=== PATIENT | male | born 1955 | race Caucasian/White ===

== ENCOUNTER 2024-11-06 09:35 | Emergency (ER) | payer MEDICARE ==
--- NOTE | 2024-11-06 09:59 | ERPHSYRPT ---
- History of Present Illness Time Seen by Provider: 11/06/24 09:48 Source: patient Physician History: This is a 68-year-old white male with a significant past medical history Who presents to the emergency department with a complaint of acute onset of dizziness and diaphoresis and blurry vision. Patient denies any recent trauma or headache patient admits to some nausea no vomiting no tinnitus. Patient denies chest pain pressure heaviness cough hemoptysis shortness of breath fevers or chills. Allergies/Adverse Reactions: sulfacetamide [From Sulfamide] Allergy (Unverified 11/06/24 09:43) Home Medications: ALPRAZolam [Alprazolam] 0.25 mg PO DAILY 11/06/24 [History] Mv-Mn/Iron/Folic Acid/Herb 190 [Vitamin D3 Complete [place]] 1 tab PO DAILY 11/06/24 [History] - Review of Systems Constitutional: No Fever, No Chills Eyes: No Symptoms Ears, Nose, & Throat: No Symptoms Respiratory: No Cough, No Dyspnea Cardiac: No Chest Pain, No Edema, No Syncope Abdominal/Gastrointestinal: No Abdominal Pain, No Nausea, No Vomiting, No Diarrhea Genitourinary Symptoms: No Dysuria Musculoskeletal: No Back Pain, No Neck Pain Skin: Dryness, No Rash Neurological: Other (See HPI), No Focal Weakness, No Sensory Changes Psychological: No Symptoms Endocrine: No Symptoms All Other Systems: Reviewed and Negative - Past Medical History Neurological History: Migraines Cardiac History: Hypertension Respiratory History: No Pertinent History Endocrine Medical History: No Pertinent History Musculoskeletal History: Osteoarthritis Other Medical History: PATIENT HAS MIGRAINES AT TIMES, USED TO HAVE SEVERE MIGRAINES WHEN HE WAS YOUNGER. - Nursing Vital Signs Nursing Vital Signs: Initial Vital Signs Temperature 98.2 F 11/06/24 09:36 Pulse Rate 41 L 11/06/24 09:36 Respiratory Rate 18 11/06/24 09:36 Blood Pressure 190/77 11/06/24 09:36 O2 Sat by Pulse Oximetry 97 11/06/24 09:36 Pain Scale Pain Intensity 0 - [place] Coma Scale Best Eye Response ([place]): (4) open spontaneously Best Verbal Response ([place]): (5) oriented Best Motor Response ([place]): (6) obeys commands [place] Total: 15 - Physical Exam General Appearance: no apparent distress, alert Eye Exam: bilateral eye: PERRL, EOMI Ears, Nose, Throat Exam: normal ENT inspection, moist mucous membranes Neck Exam: normal inspection, non-tender, supple Respiratory: normal breath sounds, lungs clear, airway intact, No respiratory distress Cardiovascular: regular rate/rhythm, No edema Gastrointestinal: soft, No tenderness, No distention Back Exam: normal inspection Extremity Exam: normal inspection, No pedal edema Mental Status: alert, 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 Ordered Tests: Active Orders 24 hr Category Date Time Status EKG-ER Only STAT Care 11/06/24 09:48 Active IV Insertion STAT Care 11/06/24 09:48 Active NPO (ED) STAT Care 11/06/24 09:48 Active POCT Glucose Check ONCE Care 11/06/24 09:48 Active CHEST 1 VIEW (PORTABLE) Stat Exams 11/06/24 09:[address] ANGIOGRAPHY NECK [CT] Stat Exams 11/06/24 09:48 Completed CTA HEAD W AND/OR WO CONTRAST [CT] Stat Exams 11/06/24 09:48 Completed CBC W DIFF Stat Lab 11/06/24 10:00 Completed CMP Stat Lab 11/06/24 10:00 Completed Manual Differential NC Stat Lab 11/06/24 10:00 Completed PROTIME WITH INR Stat Lab 11/06/24 10:00 Completed PTT Stat Lab 11/06/24 10:00 Completed UA W/RFX UR CULTURE Stat Lab 11/06/24 09:49 Ordered Medication Summary Discontinued Medications Generic Name Dose Route Start Last Admin Trade Name Burt PRN Reason Stop Dose Admin Amlodipine Besylate 5 mg 11/06/24 11:42 Amlodipine Besylate 5 Mg Tablet PO 11/06/24 11:43 STAT ONE Lab/Rad Data: Laboratory Result Diagrams 11/06/24 10:00 11/06/24 10:00 Laboratory Results 11/06/24 11/06/24 11/06/24 Range/Units 10:00 10:00 10:00 WBC 11.5 H (4.23-9.07) x10^3/uL RBC 4.86 (4.63-6.08) x10^6/uL Hgb 15.0 (13.7-17.5) g/dL Hct 43.6 (40.1-51.0) % MCV 89.7 (79.0-92.2) fL MCH 30.9 (25.7-32.2) pg MCHC 34.4 (32.3-36.5) g/dL RDW 12.6 (11.6-14.4) % Plt Count 255 (163-337) x10^3/uL MPV 10.1 (9.4-12.4) fL PT 10.0 (9.4-12.5) SECONDS INR 0.91 (0.8-3.0) APTT 22.7 L (25.1-36.5) SECONDS Sodium 138 (135-145) mmol/L Potassium 3.8 (3.5-5.1) mmol/L Chloride 105 (98-107) mmol/L Carbon Dioxide 21 L (22-30) mmol/L Anion Gap 16.2 H (5-15) MEQ/L BUN 20 (9-20) mg/dL Creatinine 1.04 (0.66-1.25) mg/dL Estimated GFR 77.7 ML/MIN Glucose 145 H (74-106) mg/dL Calcium 9.5 (8.4-10.2) mg/dL Total Bilirubin 0.80 (0.2-1.3) mg/dL AST 38 (17-59) U/L ALT 49 (0-50) U/L Alkaline Phosphatase 50 (38-126) U/L Serum Total Protein 7.4 (6.3-8.2) g/dL Albumin 4.5 (3.5-5.0) g/dL - Progress Progress Note: The patient a twelve-lead EKG reveals sinusBradycardia at 54 bpm normal axis no blocks nonspecific ST T wave changes. Patient has CT of the head which revealed a 4.8 x 4.7 sonometer left frontal lobe cystic mass with calcification with mild mass effect. No evidence of CVA patient had a CTA of the head and neck the HepPar was unchanged from the plain CT however they do note that there is moderate stenosis of the proximal left ICA causing 50% stenosis there is soft atheromatous plaque. Patient had a CBC remarkable for white count 11.5 chemistry was remarkable glucose of 145 INR were 0.9. When the patient came in I called a stroke alert however the NIH was 0 and remains 0 I had a stat consult with teleneuro who felt that the patient needed outpatient MRI. I then spoke with the neurosurgeon at [facility] because of the mass in the left frontal lobe. He felt that the patient could be followed up as an outpatient and that he would arrange for their neuro tumor service to see him this upcoming week. In the emergency department the patient was given 5 mg of p.o. amlodipine and I will discharge the patient home amlodipine and he can follow-up with his doctor for further evaluation. Differential diagnosis is vertigo TIA CVA intracranial bleed 11/06/24 11:44 - Departure Clinical Impression: Vertigo, Cystic mass of brain Condition: Stable Critical Care Time: No Referrals: JONN SHOEMAKER NP [Primary Care Provider, [facility]] - Follow up/PCP as directed Instructions: Vertigo (a Type of Dizziness) (DC) Additional Instructions: You need to follow-up with the neuro tumor service at [facility]. They have your phone number they will contact you for an appointment this week Prescriptions: Amlodipine Besylate 5 mg [Norvasc 5 mg] 5 mg PO DAILY #30 tablet
[2024-11-06 10:12] LABS: Hematocrit 43.6 % (40.1-51.0); Hemoglobin 15.0 g/dL (13.7-17.5); Mean Corpuscular Hemoglobin 30.9 pg (25.7-32.2); Mean Corpuscular Hgb Concent. 34.4 g/dL (32.3-36.5); Platelet Count 255 x10^3/uL (163-337); Red Blood Count 4.86 x10^6/uL (4.63-6.08); White Blood Count 11.5 x10^3/uL (4.23-9.07)
[2024-11-06 10:18] VITALS: TEMP 98.2
[2024-11-06 10:28] LABS: Calcium 9.5 mg/dL (8.4-10.2); Carbon Dioxide 21.0 mmol/L (22-30); Creatinine 1 1.04 mg/dL (0.66-1.25); EST GLOMERULAR FILTRATION RATE 77.7 ML/MIN; Glucose 145.0 mg/dL (74-106); Potassium 3.8 mmol/L (3.5-5.1); SGOT/AST 38.0 U/L (17-59); SGPT/ALT 49.0 U/L (0-50); Total Protein 7.4 g/dL (6.3-8.2)
[2024-11-06 10:31] LABS: INR 0.91 (0.8-3.0); PROTIME 10.0 SECONDS (9.4-12.5); PTT 22.7 SECONDS (25.1-36.5)
--- NOTE | 2024-11-06 10:34 | XRAY ---
CLINICAL HISTORY: cva COMPARISON: No previous studies are available for comparison. TECHNIQUE: CT angiography of the head was performed following the intravenous administration of [80cc of isovue 370] of iodinated contrast material. Contiguous axial images were obtained from the base of the skull to the vertex. Coronal and sagittal reformatted images were also reviewed. One of the following 3D techniques was utilized: Maximum Intensity Pixel (MIP), 3D Reconstructed Images, Volume Rendered Images, or Surface Shaded Rendering. One of the following dose reduction techniques was utilized for this exam: automated exposure control, adjustment of the mA and/or kV according to patient size, and use of iterative reconstruction. DLP: 1920.51 mGy-cm, CTDI: 94.9 mGy. FINDINGS: Intracranial Arteries: The intracranial arteries, including the anterior cerebral arteries, middle cerebral arteries, posterior cerebral arteries, basilar artery, and left vertebral artery, are all patent without evidence of significant stenosis, aneurysm, or dissection. There is no evidence of vascular malformation. 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 [place]: The posterior communicative arteries are not well seen. Venous System: The visualized portions of the venous system, including the dural venous sinuses, are patent with no evidence of thrombosis. Brain Parenchyma: The brain parenchyma shows no evidence of acute infarct or hemorrhage. There is a left frontal lobe cystic mass with calcification within, measuring 48 x 47 mm, with mild mass effect. The ventricles and sulci are prominent. Bones: The bony structures of the skull are intact without evidence of fracture or destructive lesions. Soft Tissues: The visualized soft tissues of the head are unremarkable. Additional Findings: No other significant findings are noted. IMPRESSION: 1. No evidence of significant vascular abnormalities, acute infarct, or hemorrhage. 2. There is a left frontal lobe cystic mass with calcification within, measuring 48 x 47 mm with mild mass effect. MRI of the head with contrast is advised for future assessment. [facility] ER was called at [phone] Ext#[phone] at 09:30 AM STOCK HANDLER, 11/06/2024, and, Jadyn ( Nurse ) was informed regarding the presence of Negative stroke findings. Electronically Signed by: Tacos Montalvo MD. (11/06/2024 10:32:58 EDT)
--- NOTE | 2024-11-06 10:52 | PCM.CONS ---
History of Present Illness - Neuro Consultation Date of Consultation Date: 11/06/24 ED Arrival Date & Time: 11/06/24 09:35 * Required General Template * Patient identity was confirmed at the beginning of the consult with the patient/family/staff using two personal identifiers * Clear Other VARGHESE GALLAGHER Male , 68 y.o. (1955) Hospital Clock 10:[address] [facility] - [place] See more Neuro Cohort 2 Neuro Emergency Patient Location and Admission Status * Chief Complaint * LKW 9:00AM today HISTORY OF PRESENT ILLNESS Family members and medical staff present * christopher Jose History of present illness (Include relevant elements: Location, Severity, Timing, Quality, Duration, Context, Modifying Factors, Signs, Symptoms) * Patient is a 68 yr. old RH gentleman who presents w acute onset dizziness/ blurred vision/ diaphoresis onset 9AM today.... no lateralizing weakness/ no paresthesias... NIHSS 0 on entry... + nausea/ diaphoresis/... blood glucose 118 upon entry... CT scan brain - unrevealing for acute cerebral ischemia/ L frontal lobe cystic lesion noted...chronic appearing... case d/w and reviewed w Dr. Jose... patient at baseline level of functioning... resolving symptoms / NIHSS 0... Plan admission and MRI brain w/wo rl... for evaluation of cystic lesion L frontal lobe/ and further tx of dizziness - central vs. peripheral etiology. Review Of Systems Review Of Systems Guide Pertinent Review of Systems * Review of Systems * Constitutional: Denies fevers, chills, weight loss ENT: Denies tinnitus Ophthalmology: Denies diplopia, blurred vision, vision loss Respiratory: Denies SOB, cough Cardiovascular: Denies chest pains, palpitations GI: Denies nausea, vomiting : Denies hematuria Hematology: Denies excessive bleeding Musculoskeletal: Denies back pain, neck pain, joint pain Neurology: Denies headache, altered mentation Mental Health: Denies anxiety Dermatology: Denies rash To my knowledge, this ROS is complete and accurate * Medical History Unable to assess Medical History * Clear Past Medical History Includes Other Medical History Past Procedures Clear Other Past Procedures Allergies Unable to assess Allergies * Clear Other Allergies Medications Unable to assess Anti-Coagulants * Clear Anti-Platelets * Clear Other Medications xanax 0.25mg PRN Social History * Alcohol Use Clear Illicit Drug Use Clear Tobacco Use Clear Other Social History lives at home w Family History Pertinent Family History * Clear Other Family History Vital Signs * Unable to obtain Date & Time 11/06 09:39 Recorded By julianna dietz Afebrile Temperature (F/C) 98.2 / 36.8 Blood Pressure 180/87 mm Hg Heart Rate 42 bpm Respiration Rate 12 bpm O2 Sat 99 % POC Glucose Weight LB/KG 205.5 / 93.2 BMI Means of Collecting Patient Weight Patient weighed at hospital Pain Assessment 0 -None Oxy.Delivery Room Air EKG Rhythm Sinus Rhythm Comments Exam Exam * Neuro exam: Patient awake/ alert/ oriented in 4 spheres. Speech is fluent/ naming is intact/ Repetition intact/ no evidence of aphasia noted. No dysarthria noted. 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/ EOMs intact in all directions of gaze/symmetric facial sensation V1-2 -3 bilaterally/ symmetrical facial upper/ lower noted/ audition intact/ tongue midline/ phonation intact/ + gag reflex intact/ SCMs(=) Motor exam- no pronator drift/ 4/5+ bilateral UEs/ LEs proximal to distal Sensory-intact to light touch throughout bilateral UEs/ LEs/ no agraphesthesia/ no astereognosis/ no double simultaneous extinction DTRs- deferred/ no babinski sign illicited Cerebellar- finger to nose/ heel-doyle (=)/ no dysmetria noted/ no overshoot nystagmus/ no rebound phenomenon Gait- not tested Fine motor- no resting tremor/ no myoclonus/ no abnormal involuntary movements/ no choreiform movements Gen: No apparent distress, non-toxic appearing Psych: normal affect HEENT: No visible bruising, no mucosal pallor Ophth: No scleral icterus, no conjunctival injection or proptosis Neck: No nuchal rigidity, turns neck without difficulty Resp: normal respirations, no distress, speaking in full sentences CV: No visible edema in LE Abd: No abd distention noted MSK: No joint swelling, erythema noted. No contractures noted. Skin: No pallor. No visible rashes or bruising Clinician assisting with exam PATT Thakur NIH Stroke Scale Unable to assess Recorded by: julianna dietz Recorded On: 11/06 09:39 NIH Stroke Scale Score: 0 see details labs And Imaging I reviewed labs Clear I reviewed diagnostic reports such as radiological imaging, echocardiogram, and EEG reports Clear I reviewed diagnostics such as radiological images and electroencephalograms Clear Labs and Imaging Comments * CT scan brain - unrevealing of abnormality for acute ischemia/ L frontal lobe cystic lesion labs not available Assessment Assessment * (To include Patient Summary, Differential Diagnoses, Medical Reasoning, and Diagnosis) 1. Intractable vertigo- peripheral 2. L frontal lobe cystic lesion 3. NIHSS 0 Diagnosis Diagnosis * Dizziness/ dysequilibrium Case Discussed With * christopher Jose Recommendations Recommendations * Aggressive medical treatment of risk factors for vertigo: - Frequent vital signs and neurochecks - Glucose 140-180 and aggressive fever control for now - NPO until swallow evaluation - High-intensity statin therapy for goal LDL <70 - Check HgA1c, MEDS: Antiplatelet- ASA 81mg OR Plavix 75mg q day Antivert 25mg PO QID scheduled Valium 2.5mg IV q 6 hrs. PRN vertigo Zofran 4mg IV q 6 hrs. PRN nausea - Target LDL <7.0, treatment per medical team if elevated, initiate or change current Statin to Lipitor 80mg PO q day - DVT prophylaxis: SCDs, SC LMWH or heparin if no medical contraindication. - Acute lowering of BP is not indicated in the first 24-48 hours following acute ischemic stroke in those who did not receive tPA/thrombectomy. Therefore, recommend permissive HTN for the initial 24 hours. Hold some/all BP meds x 24 hrs unless SBP > 220 or DBP > 120 or end-organ damage/risk or stroke ruled out. A reasonable goal is to lower blood pressure by 15% during the first 24 hours after stroke. - Vestibular education: to include healthy dietary and physical activity choices. - Vestibular PTx- canalith repositioning - Case management consult (if needed). - Recommend Inpt neurology f/u if available. If not, please call SOC back for further questions or concerns. Diagnostics: - CT brain no contrast- screening if not already completed- unrevealing of abnormality - MRI brain with and without contrast - MRA head/ neck with contrast - Echocardiogram with bubble study to evaluate for any [id number] shunt// May need to consider ADY if TTE comes back normal - Labs: Fasting lipid panel, HgA1c, TSH, B12, SPEP w IPEP, QUIQUE, ERIS level, Paraneoplastic panel, Beta 2 microglobulin, PT, INR, PTT, ESR, CRP, serum lactic acid, serum pyruvic acid,Iiron, TIBC, Ferritin, Parathyroid hormone, Calcium levels, ammonia level, paraneoplastic panel... - Please maintain on telemetry to look for any underlying atrial fibrillation - Consider Outpatient Cardiac Event monitor - Orthostatic BPs q shift and record - Brainstem Auditory Evoked Responses if available in Neurodiagnostics lab - ENT eval..... ALL ABOVE IF NO CONTRAINDICATIONS: After the above preliminary workup is completed, further decisions regarding diagnosis and/or management can be made by primary team and/or in-house neurologist. Please re-consult our Teleneurology service, if in-house neurology not available, with additional questions, concerns, or changes in this patients neurologic status I have obtained verbal consent from patient/surrogate for two-way audio/visual encounter * Clear Portions of the evaluation were not assessed due to the following Other THROMBOLYSIS INCLUSION/EXCLUSION CRITERIA * Inclusion Criteria * Must answer YES to ALL in order to proceed with thrombolysis. Clear All Symptoms suggestive of ischemic stroke that are deemed disabling Able to initiate treatment within 4.5 hours of time last known well? Age 18 years or older Exclusion Criteria * Physicians with expertise in cerebrovascular disease may deem thrombolysis to be reasonable in the presence of one or more exclusion criteria after careful consideration of potential risk versus benefit to the patient. Default all to No Default all to Yes Clear All Acute intracranial hemorrhage (ICH) * History of ICH other than history of cerebral microbleeds * Unable to maintain BP <185/110 despite aggressive antihypertensive treatment * Acute internal bleeding * Severe head trauma within last 3 months * Arterial puncture at non-compressible site within 7 days * Infective endocarditis * Gastrointestinal bleeding within last 21 days or structural GI malignancy * Intracranial or spinal surgery within last 3 months * Thrombocytopenia: platelet count <100 000/mm3 * INR > 1.7, PT > 15 or PTT > 40 * Low-Molecular Weight Heparin within preceding 24 hours * Direct Thrombin Inhibitors or Factor Xa Inhibitors within preceding 48 hours * Relative Exclusion Criteria Physicians with expertise in cerebrovascular disease may deem thrombolysis to be reasonable in the presence of one or more exclusion criteria after careful consideration of potential risk versus benefit to the patient. Clear All Ischemic stroke within last 3 months Major trauma (excluding head trauma) within past 14 days Severe Hypoglycemia (below 50 mg/dL) or Hyperglycemia (above 400 mg/dL) Wake-Up Stroke Inclusion Criteria Patient with suspected ischemic stroke who wake up with stroke symptoms or have unclear time of onset, and present within 4.5 hours of stroke symptom recognition may be considered for thrombolytic treatment based upon MR imaging and the following criteria Clear THROMBOLYSIS RECOMMENDATION Thrombolysis Recommended ? Clear Please select a reason why Thrombolysis was not recommended * Other NIHSS 0 Billing/Diagnosis Charge Capture DIAGNOSIS CODE DIAGNOSIS R42 Dizziness and giddiness(Primary) H81.399 Other peripheral vertigo, unspecified ear R11.2 Nausea with vomiting, unspecified H81.10 Benign paroxysmal vertigo, unspecified ear H81.4 Vertigo of central origin BILLING CHARGE CODE CHARGE DESCRIPTION DIAGNOSES DATE OF SERVICE G0427 G0427 - Emergent Level 3 -ComplexInitial Consult - Comprehensive Hx, Comprehensive Exam, High Complexity MDM R42, H81.399, R11.2, H81.10, H81.4 Nov 06, 2024, 09:46 am Attestation Interaction Mode * Video * First Video Attempt System Logged: 11/06/2024 09:34 11/06/2024 09:34 mm/dd/yyyy hh:mm (24 Hr) Phone * First Phone Attempt System Logged: 11/06/2024 09:41 11/06/2024 09:41 mm/dd/yyyy hh:mm (24 Hr) Your Current Location Enter Current Zip Code * [address] Last saved 46s ago. Auto Launch Available Clinical Contact All Video Carts Contact Numbers Provided at intake christopher Jose [phone] Callback Number [phone] Number not listed? Enter valid 10-digit number E.g. [phone] All other numbers Readiness Form Template Change forms: Consult Note General Review Of Systems Medical History Allergies & Medications Social & Family History Vital Signs Exam NIH Stroke Scale Labs & Imaging Assessment Diagnosis Recommendations Thrombolysis I/E Criteria Thrombolysis Recommendation Billing/Diagnosis Attestation Telemed IQ 11.8.2 [facility] 2024 Providers: Attending Provider: ED Provider: YAMILE HU MD Consulting Provider: JULIANNA CHARLTON DO cc:: The requesting physician will be sent a copy of the consult. - History of Present Illness HPI: The patient is a 68M Review of Systems - Review of Systems Review of Systems (Narrative): Pertinent positive and negative findings as per HPI. All other systems negative. - Past Medical History Neurological History: Migraines Cardiac History: Hypertension Respiratory History: No Pertinent History Endocrine Medical History: No Pertinent History Musculoskelatal History: Osteoarthritis Comment: PATIENT HAS MIGRAINES AT TIMES, USED TO HAVE SEVERE MIGRAINES WHEN HE WAS YOUNGER. - Past Surgical History Past Surgical History: Yes Other Surgical History: Sinus surgery - Social History Smoking Status: Never smoker Exposure to second hand smoke: No Alcohol: None Drug Use: none - Social Determinants of Health Will the patient participate in the screening: Declined to provide Physical Exam - Vital Signs Vital Signs: Vital Signs - 24 hr 11/06/24 09:36 Temperature 98.2 F Pulse Rate 41 L Respiratory 18 Rate Blood Pressure 164/80 [Left Arm] Blood Pressure 190/77 [Right Arm] O2 Sat by Pulse 97 Oximetry Results - Labs Lab/Micro Results: Accuchecks Date 11/06/24 Time 09:45 - Radiology Orders Radiology Orders: Radiology Procedures Category Date Time Status CHEST 1 VIEW (PORTABLE) Stat Exams 11/06/24 09:[address] ANGIOGRAPHY NECK [CT] Stat Exams 11/06/24 09:48 Taken CTA HEAD W AND/OR WO CONTRAST [CT] Stat Exams 11/06/24 09:48 Completed Impressions & Recommendations - ED Arrival Time ED Arrival Date & Time: ED Arrival Date and Time 11/06/24 09:35 Last known well time: - NIHSS IV Thrombolysis Standard of Care: IV thrombolysis as a standard of care in acute stroke discussed with YAMILE HU MD. Risk, benefits, and options of IV thrombolytic therapy for acute ischemic stroke were discussed with the patient/family VARGHESE GALLAGHER. We discussed that use of IV tenecteplase is in line with national stroke guidelines. We discussed that risks of IV thrombolytic use include intracranial hemorrhage, other fatal bleeding risks, and angioedema. Alternatives of treatment, including not proceeding with thrombolytic therapy were discussed. - Recommendations Recommendations: -Neuro checks, NIHSS, vital signs monitoring as per post tenecteplase protocol -Repeat non contrast head CT or noncontrast MRI brain 24 hours after IV thrombolyltic administration. -Obtain STAT non contrast head CT if there are new neurological deficits, worsening of current deficits, or with complaint of severe headache. Notify Neurology LEONEL of changes in neurological exam. -Nicardipine gtt as needed to maintain BP< 180/105 x 24hr post tenecteplase administration. -Monitor for angioedema -SCD's for DVT prophylaxis. Work up: -Basic labs (CBC, BMP, TSH+T4) if not done already. -INR,PTT if not done already -Fasting Lipid Panel and Hgb A1c -Transthroacic echocardiogram [with bubble study] -EKG + Telemetry- monitor for A-FIB Secondary Stroke Prevention -Hold off on antiplatelet therapy x 24 hr post IV thrombolytic therapy Decision to initiate antiplatelet therapy, or anticoagulation if needed, will be based on repeat imaging at 24 hour post thrombolytic administration. -If not medical contraindication, start high intensity statin. Eg. Atrovastatin 80 mg daily Risk Factor Management -HTN control: BP <180/105 for first 24 hr post tenecteplase -If diabetic, optimize glucose control: bed bug exterminator goal HgA1c <7 -HLD control: Long-term goal LDL <70. High intensity statin recommended. Moderate intensity statin in patients > 75 years. -Smoking Alcohol Use Drug use cessation counseling Stroke Rehabilitation: -Physical therapy, occupational therapy, speech therapy consults -Social work and case management consults for help with discharge needs. Impression and recommendation were discussed with Dr. YAMILE HU MD Thank you for allowing us to participate in this patient's care. Please call [facility] with questions, concerns, or change in patient's neurological status. This consult was performed via secure telemedicine audio/visual platform with [ ] RN assisting at bedside. Patient identity verified and consent obtained. TIQ recieved at [ ] Neuro Cart Time: Delays in Patient Encounter: Assessment & Plan - Encounter Encounter: "The entirety of this encounter was performed via Telemedicine using audio and visual "
[2024-11-06 11:14] VITALS: O2SAT 96
--- NOTE | 2024-11-06 11:16 | XRAY ---
CLINICAL HISTORY: cva COMPARISON: No previous studies are available for comparison. TECHNIQUE: CT angiography of the neck was performed following the intravenous administration. Axial images were obtained from the aortic arch to the vertex. Coronal and sagittal reformatted images were also reviewed. One of the following dose reduction techniques was utilized for this exam: automated exposure control, adjustment of the mA and/or kV according to patient size, and use of iterative reconstruction. One of these 3D techniques was utilized: Maximum Intensity Pixel (MIP), 3D Reconstructed Images, Volume Rendered Images, or Surface Shaded Rendering. FINDINGS: Carotid Arteries: The common, internal, and external carotid arteries are patent bilaterally, with no evidence of significant stenosis, aneurysm, or dissection. The left common carotid artery originates from the brachiocephalic trunk. Moderate stenosis of the proximal left internal carotid artery, causing 40-50% stenosis due to soft atheromatous plaque. Mild atherosclerosis of the right internal carotid artery, causing 10-20% stenosis due to soft atheromatous plaque. Mild stenosis of the left common carotid artery, causing 10-20% stenosis due to soft atheromatous plaque. Vertebral Arteries: The left vertebral artery is patent, with no evidence of significant stenosis, aneurysm, or dissection. Hypoplasia of the right vertebral artery is noted. Thyroid Gland: Artifact or nodule in the left lobe. Ultrasound correlation is recommended. Lymph Nodes: There is no evidence of significant lymphadenopathy in the neck. Soft Tissues: The soft tissues of the neck are unremarkable, with no evidence of masses or abnormal collections. Additional Findings: A left frontal lobe cystic mass is present (see CTA Head). IMPRESSION: 1. Moderate stenosis of the proximal left internal carotid artery, causing 40-50% stenosis due to soft atheromatous plaque. 2. Mild atherosclerosis of the right internal carotid artery, causing 10-20% stenosis due to soft atheromatous plaque. 3. Mild stenosis of the left common carotid artery, causing 10-20% stenosis due to soft atheromatous plaque. 4. Right vertebral artery hypoplasia. 5. 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 Electronically Signed by: Tacos Montalvo MD. (11/06/2024 11:14:27 EDT)
[2024-11-06] MEDS ORDERED: NORVASC 5 MG ONE (11:44)
[2024-11-06] MEDS: NORVASC 5 MG PO ONE (11:45)
[2024-11-06 12:33] LABS: Total Cells Counted 100
[2024-11-06 13:20] VITALS: BP 193/93; PULSE 52; RESP 12
--- NOTE | 2024-11-06 20:17 | XRAY ---
Indication: Cerebrovascular accident. Comparison: December 13, 2021 Portable apical lordotic chest inflated and is now clear. Heart not enlarged. Bony thorax intact. No new/acute findings.
== END 2024-11-06 13:28 | disposition home or self-care (01) ==
LOC: ED 09:35
DX: G93.0 Cerebral cysts (principal); R42 Dizziness and giddiness; H53.8 Other visual disturbances; I10 Essential (primary) hypertension; Z79.899 Other long term (current) drug therapy